=== PATIENT | male | born 1945 ===

== ENCOUNTER 2024-05-25 13:10 | Outpatient (CLI) | payer MEDICARE | END 2024-05-25 13:11 | disposition home or self-care (01) | LOC: CSHMRI 13:10 | PROVIDERS: ATTEND Urology | DX: R97.20 Elevated prostate specific antigen [PSA] (principal); N42.89 Other specified disorders of prostate; R93.89 Abnormal findings on diagnostic imaging of other specified body structures | CPT/HCPCS: 36415; 72197; 82565 ==